=== PATIENT | male | born 1980 | race African-American/Black ===

== ENCOUNTER 2018-03-10 04:51 | Emergency (ER) | payer SELFPAY ==
[~2018-03-10] VITALS: Ht 182.9 cm; Wt 77.1 kg
--- NOTE | 2018-03-10 04:55 | NUR ---
PT BIBFAMILY COMPLAINING OF SOB X 2 DAYS. PT HAS A HISTORY OF ASTHMA, PT IS VISITING FROM OUT OF TOWN AND LEFT INHALER AT HOME. PT 92% ON RA, IN TRIPOD POSITION. PT PLACED ON MONITOR. CALLED RT
[2018-03-10] MEDS ORDERED: ALBUTEROL FS 2.5 MG/3 ML VIAL.NEB NEB ONE (05:00)
[2018-03-10] MEDS ORDERED: IPRATROPIUM NEB FS 0.5 MG/2.5 ML AMPUL.NEB NEB ONE (05:00)
[2018-03-10] MEDS ORDERED: ALBUTEROL FS 2.5 MG/3 ML VIAL.NEB ONE (05:01)
[2018-03-10] MEDS ORDERED: IPRATROPIUM NEB FS 0.5 MG/2.5 ML AMPUL.NEB ONE (05:01)
--- NOTE | 2018-03-10 06:03 | NUR ---
Patient discharged to home in stable condition. Written and verbal after care instructions given. Patient verbalizes understanding of instruction. ambulatory with a steady gait noted. pt [id number] no acute distress noted, resp even and unlabored.
[2018-03-10 06:04] VITALS: BP 116/63
== END 2018-03-10 06:05 | disposition home or self-care (01) ==
LOC: ER 04:54
DX: J45.901 Unspecified asthma with (acute) exacerbation (principal); F17.200 Nicotine dependence, unspecified, uncomplicated; Z71.6 Tobacco abuse counseling; Z98.890 Other specified postprocedural states
CPT/HCPCS: 94640; 99283; 99406; A4606; Z7610